=== PATIENT | female | born 1950 | race Caucasian/White ===

== ENCOUNTER 2016-05-24 09:14 | Day surgery (SDC) | payer MEDICARE ==
[~2016-05-24] VITALS: Ht 154.9 cm; Wt 55.0 kg
[~2016-05-24 09:14] MED LIST: AMLO10TA3 PO; ASPI325T32 PO; GLIP10TA10 PO; HYDR12.55 PO; INSU100V7 SUBQ; Lactated Ringer's 1,000 ML IV ONE; Lactated Ringer's 1,000 ML IV SCH; METO50TA3 PO; TERB250T11 PO
[2016-05-24] MEDS ORDERED: Propofol 10,000 mCg/mL 20 mL Inj ONE (09:15)
[2016-05-24 09:46] VITALS: BP 154/69; PULSE 63; RESP 16; O2SAT 95
[2016-05-24] MEDS ORDERED: INSU100I (09:58)
[2016-05-24] MEDS ORDERED: FLUO20CA25 PO (09:59)
[2016-05-24] MEDS ORDERED: MIRT7.5T8 PO (09:59)
[2016-05-24] MEDS ORDERED: OMEP20TA86 PO (10:04)
[2016-05-24] MEDS ORDERED: 0.9% Sodium Chloride 500 ML IV ONE (10:53)
[2016-05-24] MEDS ORDERED: MetoCLOpramide 5 mg/mL 2 mL Inj IVPUSH PRN (10:55)
[2016-05-24] MEDS ORDERED: Ondansetron 2 mg/mL 2 mL Inj IVPUSH PRN (10:55)
[2016-05-24] MEDS: 0.9% Sodium Chloride 1,000 ML ONE ×2 (11:04→11:11)
[2016-05-24 11:13] VITALS: BP 135/60; PULSE 65; RESP 14; O2SAT 97
[2016-05-24 11:24] VITALS: BP 149/66; PULSE 67; RESP 12; O2SAT 97
--- NOTE | 2016-05-24 11:58 | ENDO ---
[address] [address] ENDOSCOPY PROCEDURE PATIENT: AICHA MATTHEW : 1950 MR#: [id number] ADMIT: 05/24/2016 JOB ID: [id number] PROCEDURE: Esophagogastroduodenoscopy. INDICATION: Patient with a history of peptic ulcer disease. Reports having had a bleeding peptic ulcer. Was admitted to an outside hospital. She has had no complaints of GI bleeding or anemia or abdominal pain, nausea, or vomiting. ANESTHESIA: Please see Dr. Levar Ford's anesthesia report for details regarding ASA classification, Mallampati score, and medications. INSTRUMENT USED: GIF H 180 AL. PROCEDURE DETAILS: After informed consent was obtained, the patient was brought into the GI suite, where she was placed on oxygen via nasal cannula and monitored with continuous pulse oximeter, telemetry, and blood pressure monitoring. A time-out was performed, then she was placed in the left lateral decubitus position and a bite block was placed. Medications were then administered for sedation. The standard esophagogastroduodenoscopy scope was inserted through the bite block and advanced under direct visualization to the second portion of the duodenum without difficulty. FINDINGS: 1. Normal appearing duodenal bulb, first and second portion. 2. Normal appearing pylorus. In the antrum and body of stomach there was mild erythema suggestive of mild gastritis. Multiple random biopsies were obtained. 3. Retroflexed views in the gastric body revealed a normal-appearing cardia and fundus. 4. The GE junction was regular at 39 cm. 5. Normal appearing esophagus. IMPRESSION: Mild gastritis. No ulcers noted in the stomach or duodenum. RECOMMENDATIONS: 1. Await biopsy results. 2. Obtain labs as ordered, along with ultrasound, for evaluation of isolated alkaline phosphatase. 3. Follow up in GI Clinic. COMPLICATIONS: None. ESTIMATED BLOOD LOSS: Less than 5 mL.
--- NOTE | 2016-05-24 17:51 | PCM.HPANE ---
Patient Data Surgeon Admitting Provider: Attending Provider:Isabel Gomez MD Primary Care Physician:Sruthi Matamoros MD Other Provider:Bruna Gainesingham Anesthesia Reason for Visit Peptic Ulcer Disease Ht/WT & BMI Body Mass Index Allergies Coded Allergies: No Known Drug Allergies (Verified Allergy, Unknown, 04/04/16) Medications Reported Medications Omeprazole 20 Mg Tablet.dr20 Mg PO DAILY 05/24/16 Fluoxetine 20 Mg Fzyhssm55 Mg PO DAILY Ref 0 05/24/16 Mirtazapine 7.5 Mg TabletUnknown Dose PO HS Ref 0 05/24/16 Insulin Aspart (NovoLOG U-100 Pen)100 Unit/Ml Insuln.pen 05/24/16 Metoprolol Tartrate 50 Mg Uzegio43 Mg PO BID 30 Days Ref 0 04/04/16 Insulin Glargine (Lantus U100 Insulin Vial)100 Unit/Ml Vial30 Unit SUBQ MORNING #1 VIAL Ref 0 04/04/16 Aspirin 325 Mg Qrznhy793 Mg PO DAILY #1 BOTTLE 04/04/16 Amlodipine 10 Mg Nssale20 Mg PO BID Ref 0 04/04/16 Discontinued Reported Medications Terbinafine 250 Mg Htktmh559 Mg PO DAILY 04/04/16 Hydrochlorothiazide 12.5 Mg Ooejoe62.5 Mg PO DAILY 30 Days Ref 0 04/04/16 Glipizide 10 Mg Uqoudp95 Mg PO DAILY 30 Days 04/04/16 Stop/Bang Risk Assessment Category Category 1A: Patient has history of documented sleep apnea, and HAS NOT received any narcotic, sedative or anesthesia administration during this stay. Category 1B: Patient has history of documented sleep apnea, and HAS received any narcotic , sedative or anesthesia administration during this stay Category 2: Patient has SUSPECTED Obstructive Sleep Apnea, and HAS received any narcotic , sedative or anesthesia administration during this stay. Category 3: Patient has SUSPECTED Obstructive Sleep Apnea and HAS NOT received narcotic, sedative or anesthesia administration during this stay. Category 4: Outpatient in Procedural Areas with known sleep apnea or who screen positive for High Risk via the STOP/BANG questionnaire. Exam Exam General Appearance: Alert, Oriented X3, Cooperative, No Acute Distress HEENT/AIRWAY: MP 2 Lungs: Clear to Auscultation, Normal Air Movement Heart: Exam Unremarkable, Regular Rate/Rhythm, No Murmurs/Rubs/Gallops Plan Impression Patient chart reviewed, patient interviewed and anesthestic plan with risks, benefits, and alternatives discussed, and informed consent obtained. NPO Status: > 8 hrs ASA Physical Status: ASA3 Severe Disease (IDDM) Anesthetic Plan: MAC Bene/Risks/Altern/Consents: Yes HP Complete Prior to Induction: Yes Levar Ford MD May 24, 2016 07:35
--- NOTE | 2016-05-24 17:51 | PCM.ANEP2 ---
Post Anesthesia Evaluation ASA/CMS Post Anesthesia VS in Patient's Normal Range?: Yes Resp Stable; Airway Patent?: Yes CV Function & Hydration Stable: Yes Mental Status Recovered?: Yes Pain control Satisfactory?: Yes N/V Control Satisfactory?: Yes Levar Ford MD May 24, 2016 17:51
--- NOTE | 2016-05-24 17:51 | PCM.ANEP1 ---
Post Anesthesia Phase 1 PACU Phase 1 Assessment Vital Signs Vital Signs Date Time Temp Pulse Resp B/P Pulse Ox O2 Delivery O2 Flow Rate FiO2 05/24/16 11:24 67 12 149/66 97 Room Air 05/24/16 11:13 36.4 65 14 135/60 97 Room Air Anesthetic Administered: MAC Level of Alertness: Awake, talking MCCURDY's with Equal Strength: Yes Pain: No Nausea or Vomiting: No Lungs: Clear to Auscultation, Normal Air Movement Dermatome Level: Full Sensation Levar Ford MD May 24, 2016 17:51
--- NOTE | 2016-05-25 16:10 | PATH ---
SURGICAL PATHOLOGY Attending Physician:Gabriel Toledo CASE STATUS: Signed Out PATIENT NAME: AICHA MATTHEW PID: [id number] : 1950 DATE COLLECTED:05/24/2016 15:38 SPECIMEN: Gastric, Biopsy CLINICAL HISTORY: GASTRIC BIOPSY FINAL DIAGNOSIS: Gastric Biopsy: Gastric body and antral mucosa with no diagnostic alterations. Negative for intestinal metaplasia. Negative for Helicobacter organisms. Negative for dysplasia and malignancy. ICD10: R10.13 GROSS DESCRIPTION: The specimen is received in one formalin filled container labeled with the patient's name, sublabeled "gastric" and consists of 2 portions of tissue which aggregate to 0.3 x 0.3 x 0.3 CM. The specimen is entirely submitted in one cassette. And 05/24/2016 DAC MICRO DESCRIPTION: Please see diagnosis. ICD-9 CODES: CPT CODES: 1: 06115 Electronically Signed Out Marcy Camops MD [facility] Pathology [facility] [address], [place] [address] Technical component performed at [facility], [address] [place] [address] Ave[address], [address]
== END 2016-05-24 23:59 | disposition home or self-care (01) ==
LOC: END 09:14
PROVIDERS: ATTEND Internal Medicine Gastroenterology
DX: K25.9 Gastric ulcer, unspecified as acute or chronic, without hemorrhage or perforation (principal); E11.9 Type 2 diabetes mellitus without complications; Z79.4 Long term (current) use of insulin; I12.9 Hypertensive chronic kidney disease with stage 1 through stage 4 chronic kidney disease, or unspecified chronic kidney disease; N18.4 Chronic kidney disease, stage 4 (severe); Z93.3 Colostomy status
CPT/HCPCS: 43239; 88305; J7030; J7040